=== PATIENT | female | born 1995 | race Caucasian/White ===

== ENCOUNTER 2016-07-18 19:28 | Emergency (ER) | payer BC ==
[~2016-07-18] VITALS: Ht 157.5 cm; Wt 72.1 kg
[2016-07-18 21:27] VITALS: BP 132/78
== END 2016-07-18 21:32 | disposition home or self-care (01) ==
LOC: ED 21:26
DX: J20.8 Acute bronchitis due to other specified organisms (principal); H65.03 Acute serous otitis media, bilateral; K75.4 Autoimmune hepatitis
CPT/HCPCS: 71010; 93005; 99284; J7512

== ENCOUNTER 2017-05-14 19:06 | Emergency (ER) | payer BC, MEDICAID ==
[~2017-05-14] VITALS: Ht 157.5 cm; Wt 76.0 kg
[2017-05-14] MEDS ORDERED: SODIUM CHLORIDE FLUSH 10ML SYR IVF ONE (19:30)
[2017-05-14] MEDS ORDERED: METOCLOPRAMIDE 5 MG/ML, 2ML IVPush ONE (19:30)
[2017-05-14] MEDS ORDERED: SODIUM CHLORIDE 0.9% 1,000ML IVBOLUS ONE (19:30)
[2017-05-14] MEDS ORDERED: DIPHENHYDRAMINE 50 MG/ML, 1ML IVPush ONE (19:30)
[2017-05-14] MEDS ORDERED: ACETAMINOPHEN 325 MG TABLET PO ONE (19:30)
[2017-05-14] MEDS ORDERED: ONDANSETRON 2MG/ML, 2ML IVPush ONE (19:30)
[2017-05-14] MEDS ORDERED: METOCLOPRAMIDE 5 MG/ML, 2ML ONE (20:07)
[2017-05-14] MEDS ORDERED: DIPHENHYDRAMINE 50 MG/ML, 1ML ONE (20:07)
[2017-05-14 20:57] VITALS: BP 134/88
== END 2017-05-14 20:59 | disposition home or self-care (01) ==
LOC: ED 20:53
DX: R51 Headache (principal); R11.0 Nausea
CPT/HCPCS: 96361; 96374; 96375; 99284; J1200; J2405; J2765; J7030

== ENCOUNTER 2017-06-12 18:05 | Emergency (ER) | payer MEDICAID ==
[~2017-06-12] VITALS: Ht 157.5 cm; Wt 76.0 kg
[2017-06-12 18:07] VITALS: BP 126/79
[2017-06-12] MEDS ORDERED: ONDANSETRON ODT 4 MG PO ONE (18:30)
[2017-06-12 18:41] LABS: BASOPHILS # (AUTO) 0.09 x10^3/uL (0-0.1); BASOPHILS % (AUTO) 1 % (0-1); EOSINOPHILS # (AUTO) 0.09 x10^3/uL (0-0.4); EOSINOPHILS % (AUTO) 1 % (1-7); LYMPHOCYTES # (AUTO) 4.05 x10^3/uL (1-3.4); LYMPHOCYTES % (AUTO) 39 % (22-44); MD NO; MEAN CORPUSCULAR HEMOGLOBIN 30.6 pg (27.0-34.8); MEAN CORPUSCULAR HGB CONC 33.6 g/dL (32.4-35.8); MEAN CORPUSCULAR VOLUME 91.1 fL (80-100); MEAN PLATELET VOLUME 8.6 fL (7.4-10.4); MONOCYTES # (AUTO) 0.66 x10^3/uL (0.2-0.8); MONOCYTES % (AUTO) 6 % (2-9); NEUTROPHILS % (AUTO) 53 % (42-75); PLATELET COUNT 301 x10^3/uL (130-400); RED BLOOD COUNT 4.72 x10^6/uL (3.82-5.3); RED CELL DISTRIBUTION WIDTH 13.3 % (9.6-15.2)
[2017-06-12 18:51] LABS: ALANINE AMINOTRANSFERASE 87 U/L (12-78); ALBUMIN 3.9 g/dL (3.4-5.0); ANION GAP 6 mmol/L (5-15); CALCIUM 8.8 mg/dL (8.5-10.1); CHLORIDE 110 mmol/L (98-107); CREATININE 0.73 mg/dL (0.55-1.02)
[2017-06-12 18:55] LABS: ALKALINE PHOSPHATASE 83 U/L (45-117); BILIRUBIN,TOTAL 0.3 mg/dL (0.2-1.0); TOTAL PROTEIN 7.3 g/dL (6.4-8.2)
== END 2017-06-12 19:25 | disposition home or self-care (01) ==
LOC: ED 19:20
DX: Z32.02 Encounter for pregnancy test, result negative (principal); H92.01 Otalgia, right ear; R11.0 Nausea; R10.9 Unspecified abdominal pain; Z87.891 Personal history of nicotine dependence; K75.4 Autoimmune hepatitis
CPT/HCPCS: 36415; 80053; 84702; 85025; 99284